=== PATIENT | female | born 1935 | race Caucasian/White ===

== ENCOUNTER 2016-05-10 19:21 | Emergency (ER) | payer OTHER ==
[~2016-05-10] VITALS: Ht 154.9 cm; Wt 74.2 kg
[~2016-05-10 19:21] MED LIST: ADVIL,NUPRIN,M200 MG PO; ADVIL200 MG PO; ALPRAZOLAM ER0.5 MG PO; ASPIR-LOW81 MG PO; ATARAX,VISTARIL25 MG PO; AZO CRANBERRY1 EAC1 PO; BACTRIM,SEPT1 TABLET PO; CEFTIN250 MG PO; CELEXA10 MG PO; CIPRO250 MG PO; CITALOPRAM HBR20 MG PO; CLEOCIN150 MG PO; COMPAZINE10 MG PO; CYMBALTA30 MG PO; CYMBALTA60 MG PO; ERGOCALCIF50000 UNIT PO; HYDROCODON-ACE1 EAC8 PO; KLONOPIN1 MG PO; LEVAQUIN750 MG PO; LEXAPRO5 MG PO; LIPITOR40 MG PO; LOPRESSOR50 MG PO; LORAZEPAM0.5 MG PO; MEDROL DOSEPAK4 MG PO; MIRALAX17 GM PO; NEXIUM40 MG PO; ONDANSETRON HCL4 MG PO; PEPCID COMPLET1 EACH PO; PEPCID20 MG PO; PREVACID30 MG PO; PROVENTIL HFA6.7 GM IH; RESTORIL30 MG PO; TOPROL XL50 MG PO; TRAMADOL HCL50 MG PO; TRAZODONE HCL50 MG PO; TYLENOL EXTRA500 MG PO; XANAX0.25 MG PO; XANAX0.5 MG PO; ZANTAC75 M1 PO; ZITHROMAX250 MG PO; ZOFRAN ODT4 MG PO; ZOFRAN4 MG PO; ZOLPIDEM TARTRA10 MG PO
[2016-05-10 20:08] LABS: HEMATOCRIT 41.9 % (36.0-46.0); MCH 30.1 PG (29.0-34.0); MCHC 33.2 G/DL (30.0-36.0); MCV 90.7 FL (83-99); PLATELET COUNT 310 K/uL (156-360); RBC DIS.WIDTH-CV 12.9 % (11.8-14.6); RBC DIS.WIDTH-SD 42.5 % (39-53); RED BLOOD COUNT 4.62 M/uL (3.80-5.20); WHITE BLOOD COUNT 6.1 K/uL (4.1-10.2)
[2016-05-10 20:18] LABS: CHLORIDE 107 mEq/L (99-109); POTASSIUM 3.9 mEq/L (3.7-5.4); SODIUM 141 mEq/L (136-147)
[2016-05-10 20:20] LABS: GLUCOSE 123 mg/dL (70-99)
[2016-05-10 20:21] LABS: ANION GAP 13 MEQ/L (2-14)
[2016-05-10 20:24] LABS: GFR ESTIMATE (CALCULATED) 46 mL/min/
[2016-05-10 20:25] LABS: UREA NITROGEN (BUN) 25 mg/dL (9-23)
[2016-05-10 20:29] LABS: TROP-I INTERPRETATION NEGATIVE; TROPONIN-I < 0.01 ng/mL (0.0-0.30)
[2016-05-10 22:46] LABS: TROP-I INTERPRETATION NEGATIVE; TROPONIN-I < 0.01 ng/mL (0.0-0.30)
[2016-05-10 23:45] VITALS: BP 129/76
== END 2016-05-10 23:45 | disposition home or self-care (01) ==
LOC: EME 19:21
PROVIDERS: Emergency Medicine
DX: R07.9 Chest pain, unspecified (principal); F41.1 Generalized anxiety disorder; Z85.118 Personal history of other malignant neoplasm of bronchus and lung; Z87.891 Personal history of nicotine dependence; Z88.0 Allergy status to penicillin; Z88.2 Allergy status to sulfonamides
CPT/HCPCS: 71010; 80048; 84484; 85027; 93005; 99281; 99285

== ENCOUNTER 2016-05-19 10:41 | Emergency (ER) | payer OTHER ==
[~2016-05-19] VITALS: Ht 154.9 cm; Wt 74.0 kg
[2016-05-19 12:41] VITALS: BP 145/84
== END 2016-05-19 12:42 | disposition home or self-care (01) ==
LOC: EME 10:41
DX: M24.241 Disorder of ligament, right hand (principal); I10 Essential (primary) hypertension
CPT/HCPCS: 73130; 99281; 99283

== ENCOUNTER 2016-07-08 20:39 | Inpatient (IN) | payer OTHER ==
[~2016-07-08] VITALS: Ht 154.9 cm; Wt 76.6 kg
[2016-07-08 23:01] LABS: EOSINOPHIL COUNT 0.1 K/uL (0-0.3); HEMATOCRIT 37.6 % (36.0-46.0); IMMATURE GRANULOCYTE (%) 0.7 % (0.0-0.7); IMMATURE GRANULOCYTE COUNT 0.1 K/uL; INSTRUMENT ABS NEUTROPHIL CT 9.5 K/uL; MCH 29.8 PG (29.0-34.0); MCHC 33.2 G/DL (30.0-36.0); MCV 89.5 FL (83-99); MEAN PLAT.VOLUME 8.5 uM^3 (9.5-12.4); MONOCYTE (%) 6.1 % (3-12); MONOCYTE COUNT 0.7 K/uL (0-0.8); NEUTROPHIL (%) 83.4 % (45-76); NEUTROPHIL COUNT 9.5 K/uL (1.8-6.4); PLATELET COUNT 257 K/uL (156-360); RBC DIS.WIDTH-SD 42.5 % (39-53); WHITE BLOOD COUNT 11.3 K/uL (4.1-10.2)
[2016-07-08 23:10] LABS: PROTHROMBIN TIME 10.5 (9.2-11.2); PTT 28.8 (25-32)
[2016-07-08 23:13] LABS: CHLORIDE 106 mEq/L (99-109); POTASSIUM 4.5 mEq/L (3.7-5.4); SODIUM 138 mEq/L (136-147)
[2016-07-08 23:14] LABS: GLUCOSE 154 mg/dL (70-99)
[2016-07-08 23:16] LABS: ANION GAP 9 MEQ/L (2-14)
[2016-07-08 23:18] LABS: GFR ESTIMATE (CALCULATED) 57 mL/min/
[2016-07-08 23:19] LABS: UREA NITROGEN (BUN) 24 mg/dL (9-23)
[2016-07-09] MEDS ORDERED: ROPINIROLE HC0.25 MG PO (00:28)
[2016-07-09] MEDS ORDERED: MIRTAZAPINE30 MG PO (00:29)
[2016-07-09] MEDS ORDERED: HYDROCODON-ACE1 EAC7 PO (00:29)
[2016-07-09 03:26] VITALS: BP 132/76
[2016-07-09 05:07] VITALS: BP 128/59
[2016-07-09 06:58] LABS: MCH 29.9 PG (29.0-34.0); MCHC 33.2 G/DL (30.0-36.0); MCV 90.3 FL (83-99); MEAN PLAT.VOLUME 8.9 uM^3 (9.5-12.4); PLATELET COUNT 269 K/uL (156-360); RBC DIS.WIDTH-SD 42.8 % (39-53); RED BLOOD COUNT 4.21 M/uL (3.80-5.20); WHITE BLOOD COUNT 8.1 K/uL (4.1-10.2)
[2016-07-09 07:58] VITALS: BP 119/56
[2016-07-09 11:30] VITALS: BP 92/50
[2016-07-09 16:11] VITALS: BP 110/64
[2016-07-09 20:50] LABS: HEMATOCRIT 40.8 % (36.0-46.0); MCH 29.8 PG (29.0-34.0); MCHC 32.6 G/DL (30.0-36.0); MCV 91.3 FL (83-99); MEAN PLAT.VOLUME 8.5 uM^3 (9.5-12.4); PLATELET COUNT 257 K/uL (156-360); RBC DIS.WIDTH-CV 13.1 % (11.8-14.6); RBC DIS.WIDTH-SD 43.8 % (39-53); RED BLOOD COUNT 4.47 M/uL (3.80-5.20); WHITE BLOOD COUNT 9.1 K/uL (4.1-10.2)
[2016-07-09 21:27] VITALS: BP 136/59
[2016-07-10 00:03] VITALS: BP 161/74
[2016-07-10 04:48] VITALS: BP 132/74
[2016-07-10 07:06] LABS: HEMATOCRIT 36.1 % (36.0-46.0)
[2016-07-10 07:32] LABS: ANION GAP 7 MEQ/L (2-14); CHLORIDE 106 MEQ/L (99-109); GFR ESTIMATE (CALCULATED) > 59 mL/min/; GLUCOSE 142 mg/dL (70-99); POTASSIUM 3.8 MEQ/L (3.7-5.4); SAMPLE HEMOLYSIS CHECK 0; SAMPLE ICTERIC CHECK 0; SAMPLE LIPEMIA CHECK 0; SODIUM 138 MEQ/L (136-147); UREA NITROGEN (BUN) 13 mg/dL (9-23)
[2016-07-10 08:39] VITALS: BP 113/58
[2016-07-10 12:47] VITALS: BP 109/69
[2016-07-10 15:54] VITALS: BP 124/61
[2016-07-10 20:25] VITALS: BP 99/55
[2016-07-11 00:18] VITALS: BP 110/59
[2016-07-11 07:08] LABS: MCV 90.2 FL (83-99)
[2016-07-11 07:37] LABS: ANION GAP 9 MEQ/L (2-14); CHLORIDE 104 MEQ/L (99-109); GFR ESTIMATE (CALCULATED) > 59 mL/min/; GLUCOSE 160 mg/dL (70-99); POTASSIUM 3.6 MEQ/L (3.7-5.4); SAMPLE HEMOLYSIS CHECK 0; SAMPLE ICTERIC CHECK 0; SAMPLE LIPEMIA CHECK 0; SODIUM 135 MEQ/L (136-147); UREA NITROGEN (BUN) 17 mg/dL (9-23)
[2016-07-11] MEDS ORDERED: LOPRESSOR25 MG PO (15:25)
[2016-07-11] MEDS ORDERED: K-DUR20 MEQ PO (15:37)
[2016-07-11] MEDS ORDERED: ZEASORB-AF70 G1 TP (15:38)
[2016-07-11] MEDS ORDERED: THERAGRAN1 TABLET PO (15:39)
[2016-07-11] MEDS ORDERED: LIDODERM 5% P1 PATCH TD (15:40)
[2016-07-11] MEDS ORDERED: REMERON30 M2 PO (15:41)
[2016-07-11] MEDS ORDERED: PERCOCET 5/31 TABLET PO (15:42)
[2016-07-11] MEDS ORDERED: MILK OF MAGNESI10 ML PO (15:43)
[2016-07-11] MEDS ORDERED: CITRATE OF MAG296 ML PO (15:45)
[2016-07-11] MEDS ORDERED: LOVENOX40 MG/0.4 SC (15:46)
[2016-07-11] MEDS ORDERED: MAALOX ADVANCE355 ML PO (15:48)
[2016-07-11] MEDS ORDERED: SENNA-DOCUSATE1 EAC1 PO (15:50)
[2016-07-11] MEDS ORDERED: OXAYDO5 MG PO (15:52)
[2016-07-11] MEDS ORDERED: XANAX0.25 MG PO (15:58)
[2016-07-11] MEDS ORDERED: PAIN RELIEF325 M1 PO (16:01)
[2016-07-11] MEDS ORDERED: NORCO 10/3251 TABLET PO (16:02)
[2016-07-11] MEDS ORDERED: PEPCID20 MG PO (16:03)
== END 2016-07-11 14:14 | DRG 482 ==
LOC: EME → EDBD 20:39 → 3EAST 07-09 02:04 → EDOF 07-09 02:04 → 3EAST 07-09 02:56
PROVIDERS: Emergency Medicine; Hospitalist; Orthopaedic Surgery; Physician Assistant
DX: S72.011A Unspecified intracapsular fracture of right femur, initial encounter for closed fracture (principal); D72.829 Elevated white blood cell count, unspecified; W01.198A Fall on same level from slipping, tripping and stumbling with subsequent striking against other object, initial encounter; Y92.018 Other place in single-family (private) house as the place of occurrence of the external cause; Z85.118 Personal history of other malignant neoplasm of bronchus and lung; Z92.3 Personal history of irradiation; Z92.21 Personal history of antineoplastic chemotherapy; R73.9 Hyperglycemia, unspecified
CPT/HCPCS: 73501; 73502; 73552; 76000; 80048; 81003; 85014; 85018; 85025; 85027; 85610; 85730; 86900; 86901; 93005; 99281; 99285; C1713; J0690; J1170; J1650; J1885; J2250; J2405; J2765; J3010; J7040; J7120; S0028

== ENCOUNTER 2016-07-11 10:58 | Inpatient (IN) | payer OTHER ==
[~2016-07-11] VITALS: Ht 154.9 cm; Wt 76.3 kg
[~2016-07-11 10:58] MED LIST changes: +HYDROCODON-ACE1 EAC7 PO; +MIRTAZAPINE30 MG PO; +ROPINIROLE HC0.25 MG PO
[2016-07-11] MEDS ORDERED: LOPRESSOR25 MG PO (15:25)
[2016-07-11 15:27] VITALS: BP 119/57
[2016-07-11] MEDS ORDERED: K-DUR20 MEQ PO (15:37)
[2016-07-11] MEDS ORDERED: ZEASORB-AF70 G1 TP (15:38)
[2016-07-11] MEDS ORDERED: THERAGRAN1 TABLET PO (15:39)
[2016-07-11] MEDS ORDERED: LIDODERM 5% P1 PATCH TD (15:40)
[2016-07-11] MEDS ORDERED: REMERON30 M2 PO (15:41)
[2016-07-11] MEDS ORDERED: PERCOCET 5/31 TABLET PO (15:42)
[2016-07-11] MEDS ORDERED: MILK OF MAGNESI10 ML PO (15:43)
[2016-07-11] MEDS ORDERED: CITRATE OF MAG296 ML PO (15:45)
[2016-07-11] MEDS ORDERED: LOVENOX40 MG/0.4 SC (15:46)
[2016-07-11] MEDS ORDERED: MAALOX ADVANCE355 ML PO (15:48)
[2016-07-11] MEDS ORDERED: SENNA-DOCUSATE1 EAC1 PO (15:50)
[2016-07-11] MEDS ORDERED: OXAYDO5 MG PO (15:52)
[2016-07-11] MEDS ORDERED: XANAX0.25 MG PO (15:58)
[2016-07-11] MEDS ORDERED: PAIN RELIEF325 M1 PO (16:01)
[2016-07-11] MEDS ORDERED: NORCO 10/3251 TABLET PO (16:02)
[2016-07-11] MEDS ORDERED: PEPCID20 MG PO (16:03)
[2016-07-12 05:41] LABS: HEMATOCRIT 33.7 % (36.0-46.0); MCH 30.2 PG (29.0-34.0); MCHC 33.2 G/DL (30.0-36.0); MCV 90.8 FL (83-99); MEAN PLAT.VOLUME 8.9 uM^3 (9.5-12.4); PLATELET COUNT 257 K/uL (156-360); RBC DIS.WIDTH-CV 13.3 % (11.8-14.6); RBC DIS.WIDTH-SD 43.9 % (39-53); RED BLOOD COUNT 3.71 M/uL (3.80-5.20); WHITE BLOOD COUNT 8.8 K/uL (4.1-10.2)
[2016-07-12 05:43] VITALS: BP 105/55
[2016-07-12 06:05] LABS: ALKALINE PHOSPHATASE 54 IU/L (3-129); ANION GAP 8 MEQ/L (2-14); CHLORIDE 105 MEQ/L (99-109); GFR ESTIMATE (CALCULATED) > 59 mL/min/; GLUCOSE 153 mg/dL (70-99); SAMPLE HEMOLYSIS CHECK 0; SAMPLE ICTERIC CHECK 0; SAMPLE LIPEMIA CHECK 0; SODIUM 139 MEQ/L (136-147); TOTAL BILIRUBIN 0.4 MG/DL (0.0-1.0); UREA NITROGEN (BUN) 21 mg/dL (9-23)
[2016-07-12 06:06] LABS: POTASSIUM 4.7 MEQ/L (3.7-5.4)
[2016-07-12 15:25] VITALS: BP 106/55
[2016-07-13 04:52] LABS: BASOPHIL COUNT 0.1 K/uL (0-0.1); EOSINOPHIL (%) 2.6 % (0-5); EOSINOPHIL COUNT 0.2 K/uL (0-0.3); HEMATOCRIT 34.4 % (36.0-46.0); IMMATURE GRANULOCYTE (%) 0.8 % (0.0-0.7); IMMATURE GRANULOCYTE COUNT 0.1 K/uL; INSTRUMENT ABS NEUTROPHIL CT 6.4 K/uL; LYMPHOCYTE COUNT 1.2 K/uL (1.0-2.8); MCH 29.4 PG (29.0-34.0); MCHC 32.8 G/DL (30.0-36.0); MCV 89.6 FL (83-99); MEAN PLAT.VOLUME 8.7 uM^3 (9.5-12.4); MONOCYTE (%) 8.7 % (3-12); MONOCYTE COUNT 0.8 K/uL (0-0.8); NEUTROPHIL (%) 73.2 % (45-76); NEUTROPHIL COUNT 6.4 K/uL (1.8-6.4); NRBC (%) 0.2 /100 WBC (0-0); PLATELET COUNT 287 K/uL (156-360); RBC DIS.WIDTH-CV 13.2 % (11.8-14.6); RBC DIS.WIDTH-SD 43.6 % (39-53); RED BLOOD COUNT 3.84 M/uL (3.80-5.20); WHITE BLOOD COUNT 8.7 K/uL (4.1-10.2)
[2016-07-13 05:05] LABS: CHLORIDE 103 mEq/L (99-109); POTASSIUM 4.7 mEq/L (3.7-5.4); SODIUM 138 mEq/L (136-147)
[2016-07-13 05:06] LABS: D-DIMER ELISA 3.77 mg/L FEU (< 0.57)
[2016-07-13 05:07] LABS: GLUCOSE 156 mg/dL (70-99)
[2016-07-13 05:09] LABS: ANION GAP 9 MEQ/L (2-14)
[2016-07-13 05:11] LABS: GFR ESTIMATE (CALCULATED) > 59 mL/min/
[2016-07-13 05:12] LABS: UREA NITROGEN (BUN) 20 mg/dL (9-23)
[2016-07-13 05:14] LABS: TROP-I INTERPRETATION NEGATIVE; TROPONIN-I < 0.01 ng/mL (0.0-0.30)
[2016-07-13 05:33] VITALS: BP 123/63
[2016-07-13 06:00] VITALS: BP 102/49
[2016-07-13 06:11] LABS: LACTATE DEHYDROGENASE 213 IU/L (20-246)
[2016-07-13 10:46] LABS: METH RESISTANT S AUREUS PCR NEGATIVE (NEGATIVE)
[2016-07-13 10:53] LABS: PROBE CHECK PASS; SPECIMEN PROCESSING CONTROL PASS
[2016-07-13] MEDS ORDERED: PANTOPRAZOLE SO40 MG PO (14:29)
[2016-07-13] MEDS ORDERED: FAMOTIDINE20 MG PO (14:29)
[2016-07-14] MEDS ORDERED: NORCO 10/3251 TABLET PO (11:31)
[2016-07-14] MEDS ORDERED: NORCO 5/3251 TABLET PO (11:32)
== END 2016-07-13 05:54 | DRG 560 ==
LOC: 3WEST 10:58
PROVIDERS: Hospitalist; Physical Medicine & Rehabilitation Pain Medicine
PROC: F07M0ZZ Range of Motion and Joint Mobility Treatment of Musculoskeletal System - Whole Body (ICD-10-PCS; principal; 2016-07-11)
DX: S72.011D Unspecified intracapsular fracture of right femur, subsequent encounter for closed fracture with routine healing (principal); E83.51 Hypocalcemia; D62 Acute posthemorrhagic anemia; E87.1 Hypo-osmolality and hyponatremia; K59.00 Constipation, unspecified; M25.551 Pain in right hip; E87.6 Hypokalemia; K44.9 Diaphragmatic hernia without obstruction or gangrene; G89.18 Other acute postprocedural pain; R26.2 Difficulty in walking, not elsewhere classified; F32.9 Major depressive disorder, single episode, unspecified; Z85.118 Personal history of other malignant neoplasm of bronchus and lung; Z92.3 Personal history of irradiation; Z92.21 Personal history of antineoplastic chemotherapy; Z87.891 Personal history of nicotine dependence; Z88.6 Allergy status to analgesic agent; Z88.0 Allergy status to penicillin; Z74.09 Other reduced mobility
CPT/HCPCS: 71275; 80048; 80053; 83615; 84484; 85025; 85027; 85379; 87641; 97530 GP; J1650; J7040

== ENCOUNTER 2016-07-13 05:49 | Observation (INO) | payer OTHER ==
[~2016-07-13] VITALS: Ht 154.9 cm; Wt 78.2 kg
[~2016-07-13 05:49] MED LIST changes: +CITRATE OF MAG296 ML PO; +K-DUR20 MEQ PO; +LIDODERM 5% P1 PATCH TD; +LOPRESSOR25 MG PO; +LOVENOX40 MG/0.4 SC; +MAALOX ADVANCE355 ML PO; +MILK OF MAGNESI10 ML PO; +NORCO 10/3251 TABLET PO; +OXAYDO5 MG PO; +PAIN RELIEF325 M1 PO; +PERCOCET 5/31 TABLET PO; +REMERON30 M2 PO; +SENNA-DOCUSATE1 EAC1 PO; +THERAGRAN1 TABLET PO; +ZEASORB-AF70 G1 TP
[2016-07-13 08:24] VITALS: BP 91/50
[2016-07-13 12:02] VITALS: BP 102/65
[2016-07-13 12:05] LABS: TROP-I INTERPRETATION NEGATIVE; TROPONIN-I < 0.01 ng/mL (0.0-0.30)
[2016-07-13] MEDS ORDERED: PANTOPRAZOLE SO40 MG PO (14:29)
[2016-07-13] MEDS ORDERED: FAMOTIDINE20 MG PO (14:29)
[2016-07-13 17:23] LABS: METH RESISTANT S AUREUS PCR NEGATIVE (NEGATIVE); PROBE CHECK PASS; SPECIMEN PROCESSING CONTROL PASS
[2016-07-13 20:00] VITALS: BP 122/70
[2016-07-13 23:52] VITALS: BP 120/51
[2016-07-14 03:15] VITALS: BP 133/64
[2016-07-14 07:08] VITALS: BP 144/73
[2016-07-14 07:17] LABS: MCH 29.9 PG (29.0-34.0); MCHC 32.4 G/DL (30.0-36.0); MCV 92.2 FL (83-99); NRBC (%) 0.3 /100 WBC (0-0); PLATELET COUNT 298 K/uL (156-360); RBC DIS.WIDTH-CV 13.3 % (11.8-14.6); RBC DIS.WIDTH-SD 45.3 % (39-53); RED BLOOD COUNT 3.58 M/uL (3.80-5.20); WHITE BLOOD COUNT 7.3 K/uL (4.1-10.2)
[2016-07-14 07:59] LABS: ANION GAP 8 MEQ/L (2-14); CHLORIDE 101 MEQ/L (99-109); GFR ESTIMATE (CALCULATED) > 59 mL/min/; GLUCOSE 121 mg/dL (70-99); POTASSIUM 4.4 MEQ/L (3.7-5.4); SAMPLE HEMOLYSIS CHECK 0; SAMPLE ICTERIC CHECK 0; SAMPLE LIPEMIA CHECK 0; SODIUM 134 MEQ/L (136-147); UREA NITROGEN (BUN) 17 mg/dL (9-23)
[2016-07-14] MEDS ORDERED: NORCO 10/3251 TABLET PO (11:31)
[2016-07-14] MEDS ORDERED: NORCO 5/3251 TABLET PO (11:32)
== END 2016-07-14 09:30 ==
LOC: 4WEST 05:49 → 5WEST 06:05
PROVIDERS: Hospitalist; Student in an Organized Health Care Education/Training Program
DX: R07.89 Other chest pain (principal); S72.011D Unspecified intracapsular fracture of right femur, subsequent encounter for closed fracture with routine healing; W19.XXXD Unspecified fall, subsequent encounter; F41.8 Other specified anxiety disorders; F32.9 Major depressive disorder, single episode, unspecified; R42 Dizziness and giddiness; G25.81 Restless legs syndrome; Z85.118 Personal history of other malignant neoplasm of bronchus and lung; E66.9 Obesity, unspecified; Z68.32 Body mass index [BMI] 32.0-32.9, adult; R26.2 Difficulty in walking, not elsewhere classified; K21.9 Gastro-esophageal reflux disease without esophagitis; K44.9 Diaphragmatic hernia without obstruction or gangrene
CPT/HCPCS: 80048; 84484; 85027; 87641; 93005; G0378; J1650; J2405; J7030

== ENCOUNTER 2016-07-14 08:56 | Inpatient (IN) | payer OTHER ==
[~2016-07-14] VITALS: Ht 154.9 cm; Wt 75.0 kg
[~2016-07-14 08:56] MED LIST changes: +FAMOTIDINE20 MG PO; +PANTOPRAZOLE SO40 MG PO
[2016-07-14 10:01] VITALS: BP 114/56
[2016-07-14] MEDS ORDERED: NORCO 10/3251 TABLET PO (11:31)
[2016-07-14] MEDS ORDERED: NORCO 5/3251 TABLET PO (11:32)
[2016-07-14 15:42] VITALS: BP 134/66
[2016-07-15 04:39] VITALS: BP 105/58
[2016-07-15 07:10] LABS: HEMATOCRIT 31.7 % (36.0-46.0); MCH 29.3 PG (29.0-34.0); MCHC 32.2 G/DL (30.0-36.0); MCV 91.1 FL (83-99); MEAN PLAT.VOLUME 8.9 uM^3 (9.5-12.4); NRBC (%) 0.4 /100 WBC (0-0); PLATELET COUNT 304 K/uL (156-360); RBC DIS.WIDTH-CV 13.4 % (11.8-14.6); RBC DIS.WIDTH-SD 44.2 % (39-53); RED BLOOD COUNT 3.48 M/uL (3.80-5.20); WHITE BLOOD COUNT 6.9 K/uL (4.1-10.2)
[2016-07-15 07:42] LABS: ALKALINE PHOSPHATASE 50 IU/L (3-129); ANION GAP 9 MEQ/L (2-14); CHLORIDE 100 MEQ/L (99-109); GFR ESTIMATE (CALCULATED) > 59 mL/min/; GLUCOSE 143 mg/dL (70-99); SAMPLE HEMOLYSIS CHECK 0; SAMPLE ICTERIC CHECK 0; SAMPLE LIPEMIA CHECK 0; SODIUM 135 MEQ/L (136-147); TOTAL BILIRUBIN 0.4 MG/DL (0.0-1.0); UREA NITROGEN (BUN) 16 mg/dL (9-23)
[2016-07-15 17:16] VITALS: BP 120/64
[2016-07-16 06:21] VITALS: BP 117/59
[2016-07-16 15:48] VITALS: BP 106/59
[2016-07-17 05:09] VITALS: BP 103/56
[2016-07-17 15:17] VITALS: BP 99/59
[2016-07-18 05:39] VITALS: BP 107/55
[2016-07-18 14:33] VITALS: BP 108/59
[2016-07-19 04:50] VITALS: BP 130/60
[2016-07-19 15:33] VITALS: BP 106/66
[2016-07-20 05:21] VITALS: BP 113/58
[2016-07-20 08:15] VITALS: BP 123/69
[2016-07-20 15:48] VITALS: BP 100/57
[2016-07-21 05:51] VITALS: BP 132/74
[2016-07-21 15:49] VITALS: BP 108/65
[2016-07-22 05:25] VITALS: BP 97/63
[2016-07-22 15:42] VITALS: BP 100/63
[2016-07-23 05:34] VITALS: BP 116/68
[2016-07-23] MEDS ORDERED: SENNA-DOCUSATE1 EAC1 PO (11:54)
[2016-07-23] MEDS ORDERED: PROMETHAZINE HC25 M1 PO (11:54)
[2016-07-23] MEDS ORDERED: LOVENOX40 MG/0.4 SC (11:54)
[2016-07-23] MEDS ORDERED: OXAYDO5 MG PO (11:54)
[2016-07-23] MEDS ORDERED: TOPROL XL50 MG PO (11:54)
== END 2016-07-23 14:55 | disposition home health service (06) | DRG 560 ==
LOC: 3WEST 08:56
PROVIDERS: Physical Medicine & Rehabilitation Pain Medicine
PROC: F07M0ZZ Range of Motion and Joint Mobility Treatment of Musculoskeletal System - Whole Body (ICD-10-PCS; principal; 2016-07-14)
DX: S72.011D Unspecified intracapsular fracture of right femur, subsequent encounter for closed fracture with routine healing (principal); R26.9 Unspecified abnormalities of gait and mobility; D62 Acute posthemorrhagic anemia; E83.51 Hypocalcemia; E87.1 Hypo-osmolality and hyponatremia; D72.829 Elevated white blood cell count, unspecified; F43.21 Adjustment disorder with depressed mood; J43.9 Emphysema, unspecified; G25.81 Restless legs syndrome; F41.9 Anxiety disorder, unspecified; K21.0 Gastro-esophageal reflux disease with esophagitis; K44.9 Diaphragmatic hernia without obstruction or gangrene; Z66 Do not resuscitate; W01.0XXD Fall on same level from slipping, tripping and stumbling without subsequent striking against object, subsequent encounter; Z85.118 Personal history of other malignant neoplasm of bronchus and lung; Z87.891 Personal history of nicotine dependence; Z92.21 Personal history of antineoplastic chemotherapy; Z92.3 Personal history of irradiation; Z88.0 Allergy status to penicillin; Z88.2 Allergy status to sulfonamides; Z88.5 Allergy status to narcotic agent
CPT/HCPCS: 71010; 80053; 85027; 97110 GO; 97530 GP; J1650; Q0169

== ENCOUNTER 2016-07-28 11:24 | Emergency (ER) | payer OTHER ==
[~2016-07-28] VITALS: Ht 154.9 cm; Wt 68.0 kg
[~2016-07-28 11:24] MED LIST changes: +NORCO 5/3251 TABLET PO; +PROMETHAZINE HC25 M1 PO
[2016-07-28 13:44] LABS: HEMATOCRIT 44.2 % (36.0-46.0); MCH 28.9 PG (29.0-34.0); MCHC 32.4 G/DL (30.0-36.0); MCV 89.3 FL (83-99); MEAN PLAT.VOLUME 8.5 uM^3 (9.5-12.4); RBC DIS.WIDTH-CV 13.6 % (11.8-14.6); RBC DIS.WIDTH-SD 44.3 % (39-53); WHITE BLOOD COUNT 8.4 K/uL (4.1-10.2)
[2016-07-28 13:45] LABS: CHLORIDE 102 mEq/L (99-109); POTASSIUM 4.5 mEq/L (3.7-5.4); SODIUM 137 mEq/L (136-147)
[2016-07-28 13:46] LABS: GLUCOSE 134 mg/dL (70-99)
[2016-07-28 13:47] LABS: ANION GAP 14 MEQ/L (2-14); PLATELET COUNT 557 K/uL (156-360); RED BLOOD COUNT 4.95 M/uL (3.80-5.20)
[2016-07-28 13:48] LABS: TOTAL BILIRUBIN 0.5 mg/dL (0.0-1.0)
[2016-07-28 13:50] LABS: ALKALINE PHOSPHATASE 128 IU/L (3-129); GFR ESTIMATE (CALCULATED) 51 mL/min/
[2016-07-28 13:51] LABS: UREA NITROGEN (BUN) 17 mg/dL (9-23)
[2016-07-28 13:53] LABS: LIPASE 41 U/L (1.0-51.0)
[2016-07-28 17:10] LABS: ADD MIUA? NO; BILIRUBIN NEGATIVE; BLOOD NEGATIVE; COLOR YELLOW ((YELLOW)); GLUCOSE (STRIP) NEGATIVE; KETONES NEGATIVE; LEUKOCYTES NEGATIVE; NITRITE NEGATIVE; PROTEIN (STRIP) NEGATIVE; SPECIFIC GRAVITY 1.013 (1.000-1.030); UROBILINOGEN 0.2 MG/DL (0.2-1.0)
[2016-07-28 18:00] VITALS: BP 130/70
== END 2016-07-28 18:00 | disposition home or self-care (01) ==
LOC: EME 11:24
PROVIDERS: Physician Assistant
DX: K59.00 Constipation, unspecified (principal); R11.2 Nausea with vomiting, unspecified; Z98.890 Other specified postprocedural states; Z96.641 Presence of right artificial hip joint; Z90.49 Acquired absence of other specified parts of digestive tract; Z87.891 Personal history of nicotine dependence
CPT/HCPCS: 74176; 80053; 81003; 83690; 85027; 99281; 99284; G8978 GP CJ; G8979 GP CI; G8987 CK; G8988 GO CJ; J2405; J2765; J7040

== ENCOUNTER 2016-09-30 13:01 | Emergency (ER) | payer OTHER ==
[~2016-09-30] VITALS: Ht 154.9 cm; Wt 37.9 kg
[2016-09-30 14:04] LABS: HEMATOCRIT 38.1 % (36.0-46.0); MCH 27.6 PG (29.0-34.0); MCHC 32.3 G/DL (30.0-36.0); MCV 85.6 FL (83-99); MEAN PLAT.VOLUME 8.7 uM^3 (9.5-12.4); PLATELET COUNT 282 K/uL (156-360); RBC DIS.WIDTH-CV 13.9 % (11.8-14.6); RBC DIS.WIDTH-SD 43.8 % (39-53); RED BLOOD COUNT 4.45 M/uL (3.80-5.20); WHITE BLOOD COUNT 8.1 K/uL (4.1-10.2)
[2016-09-30 14:12] LABS: CHLORIDE 107 mEq/L (99-109); POTASSIUM 4.1 mEq/L (3.7-5.4); SODIUM 141 mEq/L (136-147)
[2016-09-30 14:13] LABS: GLUCOSE 139 mg/dL (70-99)
[2016-09-30 14:15] LABS: ANION GAP 11 MEQ/L (2-14)
[2016-09-30 14:17] LABS: GFR ESTIMATE (CALCULATED) > 59 mL/min/
[2016-09-30 14:18] LABS: UREA NITROGEN (BUN) 29 mg/dL (9-23)
[2016-09-30 16:29] VITALS: BP 149/93
== END 2016-09-30 16:31 | disposition home or self-care (01) ==
LOC: EME 13:01
PROVIDERS: Emergency Medicine
DX: S83.91XA Sprain of unspecified site of right knee, initial encounter (principal); S00.81XA Abrasion of other part of head, initial encounter; W01.0XXA Fall on same level from slipping, tripping and stumbling without subsequent striking against object, initial encounter; I10 Essential (primary) hypertension; K21.9 Gastro-esophageal reflux disease without esophagitis; Z96.649 Presence of unspecified artificial hip joint; Z85.118 Personal history of other malignant neoplasm of bronchus and lung; Z87.891 Personal history of nicotine dependence
CPT/HCPCS: 70450; 73502; 73564; 80048; 85027; 99281; 99283

== ENCOUNTER 2016-10-26 13:34 | Emergency (ER) | payer OTHER ==
[~2016-10-26] VITALS: Ht 154.9 cm; Wt 68.0 kg
[2016-10-26 16:00] VITALS: BP 113/86
== END 2016-10-26 16:02 | disposition home or self-care (01) ==
LOC: EME 13:34
DX: M25.552 Pain in left hip (principal); S70.02XA Contusion of left hip, initial encounter; W18.09XA Striking against other object with subsequent fall, initial encounter; Y92.009 Unspecified place in unspecified non-institutional (private) residence as the place of occurrence of the external cause; I10 Essential (primary) hypertension; K21.9 Gastro-esophageal reflux disease without esophagitis; K44.9 Diaphragmatic hernia without obstruction or gangrene; Z85.118 Personal history of other malignant neoplasm of bronchus and lung; Z92.3 Personal history of irradiation; Z92.21 Personal history of antineoplastic chemotherapy; F32.9 Major depressive disorder, single episode, unspecified; F41.9 Anxiety disorder, unspecified; Z96.641 Presence of right artificial hip joint; Z87.891 Personal history of nicotine dependence; Z88.0 Allergy status to penicillin
CPT/HCPCS: 73502; 99281; 99284

== ENCOUNTER 2017-01-03 13:17 | Emergency (ER) | payer OTHER ==
[~2017-01-03] VITALS: Ht 157.5 cm; Wt 72.3 kg
[2017-01-03 13:50] VITALS: BP 151/89
== END 2017-01-03 14:10 | disposition left against medical advice (07) ==
LOC: EME 13:17
DX: R11.0 Nausea (principal); Z53.21 Procedure and treatment not carried out due to patient leaving prior to being seen by health care provider
CPT/HCPCS: 80048; 81003; 85027; 93005

== ENCOUNTER 2017-06-17 06:33 | Day surgery (SDC) | payer OTHER ==
[~2017-06-17] VITALS: Ht 154.9 cm; Wt 72.0 kg
[~2017-06-17 06:33] MED LIST changes: +BUSPAR10 MG PO; +NORCO 7.5/321 TABLET PO; +PROTONIX40 MG PO; +REGLAN10 MG PO; +REQUIP0.25 MG PO; +RISPERDAL0.25 MG PO; +TOPROL XL25 MG PO; +ZANTAC300 MG PO; +ZOCOR20 MG PO
[2017-06-17] MEDS ORDERED: TYLENOL EXTRA500 MG PO (07:26)
[2017-06-17 07:34] VITALS: BP 109/72
[2017-06-17] MEDS ORDERED: HYDROCODON-ACE1 EAC7 PO (13:24)
[2017-06-17 14:51] VITALS: BP 171/70
[2017-06-17 15:45] VITALS: BP 149/72
[2017-06-17 16:50] VITALS: BP 134/92
[2017-06-17 17:20] VITALS: BP 142/82
== END 2017-06-17 17:35 | disposition home or self-care (01) ==
LOC: SDC 06:33 → NUC 07:00 → SDC 08:00
DX: C50.911 Malignant neoplasm of unspecified site of right female breast (principal); Z17.0 Estrogen receptor positive status [ER+]; I10 Essential (primary) hypertension; K21.9 Gastro-esophageal reflux disease without esophagitis; R00.0 Tachycardia, unspecified; E78.5 Hyperlipidemia, unspecified; Z87.891 Personal history of nicotine dependence; Z88.0 Allergy status to penicillin; Z88.2 Allergy status to sulfonamides
CPT/HCPCS: 78195; 78999; 94640; 94640 76; A9541; J0330; J1170; J2405; J2550; S0020

== ENCOUNTER 2017-10-04 10:48 | Emergency (ER) | payer OTHER ==
[~2017-10-04] VITALS: Ht 157.5 cm; Wt 72.9 kg
[2017-10-04 11:39] LABS: BASOPHIL (%) 0.6 % (0-1); EOSINOPHIL (%) 2.2 % (0-5); EOSINOPHIL COUNT 0.1 K/uL (0-0.3); HEMOGLOBIN 14.6 G/DL (11.9-15.5); IMMATURE GRANULOCYTE (%) 0.5 % (0.0-0.7); LYMPHOCYTE (%) 12.4 % (15-42); LYMPHOCYTE COUNT 0.8 K/uL (1.0-2.8); MCH 29.1 PG (29.0-34.0); MCHC 33.2 G/DL (30.0-36.0); MCV 87.8 FL (83-99); MONOCYTE (%) 6.9 % (3-12); MONOCYTE COUNT 0.4 K/uL (0-0.8); NEUTROPHIL (%) 77.4 % (45-76); NEUTROPHIL COUNT 4.9 K/uL (1.8-6.4); PLATELET COUNT 267 K/uL (156-360); RBC DIS.WIDTH-CV 14.1 % (11.8-14.6); RBC DIS.WIDTH-SD 45.1 % (39-53); RED BLOOD COUNT 5.01 M/uL (3.80-5.20); WHITE BLOOD COUNT 6.4 K/uL (4.1-10.2)
[2017-10-04 11:49] LABS: ALBUMIN 4.3 g/dL (3.2-4.8); CHLORIDE 105 mEq/L (99-109); POTASSIUM 4.3 mEq/L (3.7-5.4); SODIUM 138 mEq/L (136-147)
[2017-10-04 11:52] LABS: GLUCOSE 149 mg/dL (70-99); TOTAL PROTEIN 8.2 g/dL (6.4-8.3)
[2017-10-04 11:53] LABS: TOTAL BILIRUBIN 0.4 mg/dL (0.0-1.0)
[2017-10-04 11:55] LABS: ALKALINE PHOSPHATASE 81 IU/L (3-129); GFR ESTIMATE (CALCULATED) 57 mL/min/
[2017-10-04 11:56] LABS: UREA NITROGEN (BUN) 18 mg/dL (9-23)
[2017-10-04 11:57] LABS: AST (GOT) 14 IU/L (2-34)
[2017-10-04 11:58] LABS: ALT (GPT) 12 IU/L (3-49)
[2017-10-04 12:01] LABS: TROP-I INTERPRETATION NEGATIVE; TROPONIN-I < 0.01 ng/mL (0.0-0.30)
[2017-10-04 12:44] LABS: LIPASE 31 U/L (1.0-51.0)
[2017-10-04 13:55] LABS: APPEARANCE CLEAR ((CLEAR)); BILIRUBIN NEGATIVE; BLOOD SMALL; COLOR YELLOW ((YELLOW)); GLUCOSE (STRIP) NEGATIVE; KETONES NEGATIVE; LEUKOCYTES NEGATIVE; NITRITE NEGATIVE; PROTEIN (STRIP) 30; SPECIFIC GRAVITY 1.024 (1.000-1.030); UROBILINOGEN 0.2 MG/DL (0.2-1.0)
[2017-10-04 13:59] LABS: BACTERIA NONE SEEN /HPF; EPITHELIAL CELLS RARE /HPF; MUCUS TRACE /LPF; UCUL ADDED? NO; WHITE BLOOD CELLS 0-5 /HPF (0-5)
[2017-10-04 14:30] VITALS: BP 133/109
== END 2017-10-04 14:55 | disposition home or self-care (01) ==
LOC: EME 10:48
PROVIDERS: Emergency Medicine
DX: R53.83 Other fatigue (principal); F41.9 Anxiety disorder, unspecified; Z85.3 Personal history of malignant neoplasm of breast; Z92.21 Personal history of antineoplastic chemotherapy; Z92.3 Personal history of irradiation; Z90.49 Acquired absence of other specified parts of digestive tract; Z87.891 Personal history of nicotine dependence; Z88.0 Allergy status to penicillin; Z88.5 Allergy status to narcotic agent; Z88.2 Allergy status to sulfonamides
CPT/HCPCS: 80053; 81003; 83690; 84484; 85025; 93005; 99281; 99284; J2765